=== PATIENT | male | born 1955 | race Caucasian/White ===

== ENCOUNTER → 2017-01-23 | Outpatient (CLI) | payer BC ==
[2017-01-23 09:15] LABS: ABSOLUTE EOSINOPHILS # (AUTO) 0.1 10^3/uL (0.0-0.6); ABSOLUTE LYMPHOCYTES (AUTO) 1.2 10^3/uL (0.5-4.7); ABSOLUTE MONOCYTES (AUTO) 0.5 10^3/uL (0.1-1.4); ABSOLUTE NEUT (AUTO) 4.6 10^3/uL (1.7-8.2); BASOPHILS % (AUTO) 0.6 % (0-2); EOSINOPHILS % (AUTO) 1.7 % (0-6); HEMATOCRIT 48.3 % (37.9-51.0); HEMOGLOBIN 16.3 g/dL (13.5-17.0); HGB HCT DIFFERENCE 0.6; LYMPHOCYTES % (AUTO) 18.8 % (13-45); MEAN CORPUSCULAR HEMOGLOBIN 28.4 pg (27.0-33.4); MEAN CORPUSCULAR HGB CONC 33.8 g/dL (32.0-36.0); MEAN CORPUSCULAR VOLUME 84 fl (80-97); MONOCYTES % (AUTO) 7.5 % (3-13); RED BLOOD COUNT 5.75 10^6/uL (4.35-5.55); RED CELL DISTRIBUTION WIDTH 14.9 % (11.5-14.0); SEGMENTED NEUTROPHILS % (AUTO) 71.4 % (42-78); WHITE BLOOD COUNT 6.4 10^3/uL (4.0-10.5)
[2017-01-23 09:41] LABS: ALANINE AMINOTRANSFERASE 42 U/L (21-72); ALBUMIN 4.1 g/dL (3.5-5.0); ALKALINE PHOSPHATASE 50 U/L (38-126); ANION GAP 12 (5-19); ASPARTATE AMINO TRANSFERASE 22 U/L (17-59); BILIRUBIN,DIRECT 0.3 mg/dL (0.0-0.4); BILIRUBIN,TOTAL 0.8 mg/dL (0.2-1.3); BLOOD UREA NITROGEN 22 mg/dL (7-20); CALCIUM 9.6 mg/dL (8.4-10.2); CARBON DIOXIDE 28 mmol/L (22-30); CHLORIDE 104 mmol/L (98-107); CREATININE RESULT 0.88 mg/dL (0.52-1.25); GLUCOSE 123 mg/dL (75-110); POTASSIUM 4.6 mmol/L (3.6-5.0); SODIUM 143.9 mmol/L (137-145); TOTAL PROTEIN 6.4 g/dL (6.3-8.2)
[2017-01-23 10:06] LABS: THYROID STIMULATING HORMONE 3.56 uIU/mL (0.47-4.68)
[2017-01-24 07:42] LABS: HEPATITIS C VIRUS AB <0.1 s/co ratio (0.0-0.9)
== END ==
LOC: OD 07:04
PROVIDERS: ATTEND Family Medicine
DX: E78.00 Pure hypercholesterolemia, unspecified (principal); E11.9 Type 2 diabetes mellitus without complications; I10 Essential (primary) hypertension; Z11.59 Encounter for screening for other viral diseases; Z83.49 Family history of other endocrine, nutritional and metabolic diseases; Z12.5 Encounter for screening for malignant neoplasm of prostate
CPT/HCPCS: 36415; 80053; 83036; 84153; 84439; 84443; 85025; 86803; 86804

== ENCOUNTER 2019-04-16 07:39 | Emergency (ER) | payer OTHER, BC ==
--- NOTE | 2019-04-16 08:33 | RADIOLOGY REPORT (SQ) ---
EXAM DESCRIPTION: FOOT RIGHT COMPLETE COMPLETED DATE/TIME: 04/16/2019 8:23 am REASON FOR STUDY: forklift ran over foot COMPARISON: None. NUMBER OF VIEWS: Three views. TECHNIQUE: AP, lateral and oblique radiographic images acquired of the right foot. LIMITATIONS: None. FINDINGS: MINERALIZATION: Normal. BONES: There is a minimally displaced oblique fracture of the distal right 2nd metatarsal. JOINTS: No effusions. SOFT TISSUES: No soft tissue swelling. No foreign body. OTHER: No other significant finding. IMPRESSION: There is a minimally displaced oblique fracture of the distal right 2nd metatarsal. TECHNICAL DOCUMENTATION: JOB ID: [id number] [employer]- All Rights Reserved Reading location - IP/workstation name: [email or web address]
--- NOTE | 2019-04-16 08:50 | ER Document Report ---
HPI - HPI Time Seen by Provider: 04/16/19 08:08 Pain Level: 3 Context: Patient is a 63-year-old male with a history of hypertension, type 2 diabetes, high cholesterol who presents to the emergency department after a left foot injury yesterday. Patient states that he was at [employer] working 26,000 pound forklift ran over his left foot. Patient states it ran over the top of the foot. Patient states he was wearing a soft liquor runner tennis shoe. Patient states that the pain has gotten worse throughout the night with bruising. Patient states he is on a daily baby aspirin but does not take any blood thinners. Patient denies numbness or tingling to the lower extremity. Patient states he took Motrin last night prior to bed but is unsure if it helped as he did fall asleep. - CONSTITUTIONAL Constitutional: DENIES: Fever, Chills Past Medical History - General Information source: Patient - Social History Smoking Status: Never Smoker Chew tobacco use (# tins/day): No Frequency of alcohol use: Rare Drug Abuse: None Lives with: Family Family History: Reviewed & Not Pertinent Patient has suicidal ideation: No Patient has homicidal ideation: No - Past Medical History Cardiac Medical History: Reports: Hx Hypercholesterolemia, Hx Hypertension Denies: Hx Coronary Artery Disease, Hx Heart Attack Pulmonary Medical History: Reports: None Denies: Hx Asthma, Hx Bronchitis, Hx COPD - HAS HAD A SOMETIMES PRODUCTIVE COUGH FOR YEARS., Hx Pneumonia EENT Medical History: Reports: None Neurological Medical History: Reports: None. Denies: Hx Cerebrovascular Accident, Hx Seizures Endocrine Medical History: Reports: Hx Diabetes Mellitus Type 2 Renal/ Medical History: Reports: None. Denies: Hx Peritoneal Dialysis Malignancy Medical History: Reports None GI Medical History: Reports: Hx Gastroesophageal Reflux Disease. Denies: Hx Hepatitis, Hx Hiatal Hernia, Hx Ulcer Musculoskeletal Medical History: Reports None, Denies Hx Arthritis Skin Medical History: Reports None Psychiatric Medical History: Reports: None Traumatic Medical History: Reports: None Infectious Medical History: Reports: None. Denies: Hx Hepatitis Past Surgical History: Reports: None. Denies: Hx Open Heart Surgery, Hx Pacemaker - Immunizations Hx Diphtheria, Pertussis, Tetanus Vaccination: Yes Vertical Provider Document - CONSTITUTIONAL Agree With Documented VS: Yes Exam Limitations: No Limitations General Appearance: No Apparent Distress - INFECTION CONTROL TRAVEL OUTSIDE OF THE [place] IN LAST 30 DAYS: No - HEENT HEENT: Atraumatic, Normocephalic - NECK Neck: Normal Inspection - RESPIRATORY Respiratory: Breath Sounds Normal, No Respiratory Distress - CARDIOVASCULAR Cardiovascular: Regular Rate - GI/ABDOMEN Gastrointestinal: Abdomen Soft, Abdomen Non-Tender - MUSCULOSKELETAL/EXTREMETIES Notes: Ecchymosis and mild edema noted to the dorsal side of the left foot distally at the base of the toes. Patient is able to wiggle his toes, has good flexion and extension of the foot and no deformity to the ankle. Patient has a strong left pedal pulse with a < 2 sec cap refill. No obvious deformity. There is no open wound or skin breakdown on the foot. - NEURO Level of Consciousness: Awake, Alert, Appropriate - DERM Integumentary: Warm, Dry, No Rash Course - Re-evaluation Re-evalutation: 04/16/19 The x-ray of the foot showed a minimally displaced oblique fracture of the second metatarsal. I did discuss results with Dr. Oseguera my supervising physician who recommends an manny wrap and a hard surgical boot. I did discuss the x-ray findings with the patient and provided him with a 2-day work note. I did discuss elevating the lower extremity and of following up with orthopedics. I did provide the patient with multiple orthopedic surgeons in the area. Patient to return for worsening pain, swelling, fever or any other concerning signs or symptoms. Informed patient to continue taking Tylenol or ibuprofen. I did offer a dose of pain medication prior to discharge but patient states he is okay at this time. I have also educated the patient to evaluate his feet daily due to his history of type 2 diabetes and to seek medical evaluation for any skin breakdown and the signs and symptoms of infection. - Vital Signs Vital signs: Temp Pulse Resp BP Pulse Ox 98.0 F 79 16 129/68 H 93 04/16/19 07:50 04/16/19 07:50 04/16/19 07:50 04/16/19 07:50 04/16/19 07:50 - Diagnostic Test Radiology reviewed: Image reviewed, Reports reviewed Discharge - Discharge Clinical Impression: Metatarsal bone fracture Qualifiers: Encounter type: initial encounter Metatarsal bone: second Fracture type: closed Fracture alignment: displaced Laterality: right Qualified Code(s): S92.321A - Displaced fracture of second metatarsal bone, right foot, initial encounter for closed fracture Condition: Stable Disposition: HOME, SELF-CARE Additional Instructions: Today you were seen in the emergency department for a right foot injury. The x- ray did show a minimally displaced oblique fracture of the second metatarsal. This can take many weeks for it to heal. Please wear the hard boot for comfort and use manny wrap. Please elevate the lower extremity over the 2 days to help with swelling. You may expect some bruising to the site. Take Tylenol or ibuprofen for pain. Follow-up with orthopedics as he may need additional testing for the appropriate healing. Return to the emergency department for any worsening signs or symptoms to include severe foot swelling, increased numbness or tingling, or any other concerning signs or symptoms. Due to your history of diabetes please check the bottom of your feet daily for any abrasions or open cuts or wounds. Forms: Return to Work Referrals: AARON GILES PA [Primary Care Provider] - Follow up as needed JANINE SHEPPARD MD [ACTIVE STAFF] - Follow up as needed KAYA REILLY DO [ACTIVE STAFF] - Follow up as needed
[2019-04-16 09:19] VITALS: BP 126/84
== END 2019-04-16 09:19 | disposition home or self-care (01) ==
LOC: ER 07:39
DX: S92.321A Displaced fracture of second metatarsal bone, right foot, initial encounter for closed fracture (principal); W24.0XXA Contact with lifting devices, not elsewhere classified, initial encounter; Y92.512 Supermarket, store or market as the place of occurrence of the external cause; Y99.0 Civilian activity done for income or pay; E11.9 Type 2 diabetes mellitus without complications; I10 Essential (primary) hypertension; Z79.82 Long term (current) use of aspirin
CPT/HCPCS: 99283